=== PATIENT | female | born 1975 | race Caucasian/White ===

== ENCOUNTER 2021-06-30 10:29 | Emergency (ER) | payer MEDICAID, SELFPAY ==
--- NOTE | ~2021-06-30 | US_ITS ---
EXAMINATION: US VENOUS WITH DOPPLER UPPER EXTREMITY, LEFT CLINICAL INFORMATION: Pain COMPARISON: None TECHNIQUE: Ultrasound of the upper extremity is performed using compression sonography and color and pulse Doppler flow with assessment of augmentation of flow. There is also imaging and Doppler assessment of the jugular and subclavian veins. Spectral analysis with color-flow imaging is performed. FINDINGS: Respiratory variation, normal compression, and augmented flow are noted throughout the upper extremity including the axillary, brachial, cubital, and radial and ulnar veins. There is normal flow in the internal jugular and subclavian veins. There is no visible deep or superficial thrombophlebitis. If the patient's symptoms progress, a followup ultrasound in 5 -7 days might be of value to exclude proximal propagation from a nonvisualized distal arm vein. US/US venous duplex UE LT IMPRESSION: No DVT demonstrated in the left upper extremity.
--- NOTE | ~2021-06-30 | NM_ITS ---
EXAMINATION: NM LUNG IMAGE PERFUSION CLINICAL INFORMATION: Following disease. Chest pain. Can't get CT PE today COMPARISON: 06/30/2021 chest x-ray TECHNIQUE: Multiple oblique gamma camera images were obtained after the intravenous injection of 4 mCi of technetium 99 MAA. Ventilation study was not performed and perfusion only was performed currently. FINDINGS: On the perfusion images, there is mild heterogeneous peripheral perfusion but no fixed segmental or subsegmental defects seen. The chest x-ray from earlier today did not show any focal airspace disease either. NM/NM pul perfusion IMPRESSION: Perfusion only study performed. Ventilation images were not obtained. There is mild peripheral heterogeneity of signal but no fixed segmental or subsegmental defects seen. If the patient had a normal ventilation study this perfusion would likely correspond to a low probability VQ scan.
--- NOTE | ~2021-06-30 | CT_ITS ---
EXAMINATION: CT ANGIOGRAM NECK WITH CONTRAST CT ANGIOGRAM BRAIN WITH CONTRAST CLINICAL INFORMATION: Clotting disorder. Headache. Gait disturbance. COMPARISON: Head CT 11/01/2015.. TECHNIQUE: Test bolus sequences followed by intravenous administration 100 mL of Omnipaque 350. Helical imaging was performed in the axial plane from the thoracic inlet to the skull vertex. Delayed postcontrast imaging of the head was also performed. The data was processed at the medical technologist hematology workstation for generation of MIP sequences. Angled MIPs and volume rendered reformatted images were also generated at an offline 3D workstation. Stenoses are assessed in accordance with NASCET criteria unless otherwise indicated. This CT examination was performed using dose optimization techniques as appropriate, variously including the following: *Automated exposure control *Adjustment of mA and/or kV according to patient size (this includes techniques or standardized protocols for targeted exams where dose is matched to indication/reason for exam; i.e. extremities or head) *Use of iterative reconstruction technique DLP: 2078 mGy-cm FINDINGS: Head CT: There is no intracranial hemorrhage, large acute infarction, or mass lesion. The ventricles are normal in size and configuration without evidence of hydrocephalus. On the postcontrast images, no abnormal enhancement is seen. The dural venous sinuses demonstrate normal opacification. The visualized paranasal sinuses and mastoid air cells are clear. Neck CTA: The aortic arch and great vessel origins are patent. There is direct origin of the left vertebral artery. The bilateral common and internal carotid arteries are patent. Both vertebral arteries are patent throughout their cervical course. Head CTA: The intradural vertebral artery segments are both patent. The basilar artery is patent. There is -type origin of the left GYMNASTICS COACH OR INSTRUCTOR. Both antique auto museum maintenance worker are patent. The bilateral ICAs are patent. 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 The left A1 segment is hypoplastic. There is no proximal vessel occlusion. No aneurysm is seen. 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 Emphysema is present in the upper lungs. No consolidation is seen. The cervical soft tissues are within normal limits. Multilevel degenerative changes are seen within the cervical spine. CT/CT angio head neck IMPRESSION: No acute intracranial abnormality identified. No occlusion or significant stenosis within the major head or neck arteries. Incidentally noted emphysema.
--- NOTE | ~2021-06-30 | XR_ITS ---
EXAMINATION: XR CHEST CLINICAL INFORMATION: Chest pain COMPARISON: Previous chest x-ray August 2019 TECHNIQUE: Frontal view of the chest was obtained. FINDINGS: The cardiac and mediastinal contours are stable. There are surgical clips projecting over the left upper lung. The lungs are otherwise clear. There is no pleural effusion or pneumothorax. There may be a small right cervical rib. Bony structures are otherwise unremarkable. XR/XR chest 1V IMPRESSION: No evidence for acute disease in the chest.
[2021-06-30 10:32] VITALS: BP 167/88; PULSE 60; RESP 16; TEMP 36.7; O2SAT 96; BMI 28.3
[2021-06-30 11:10] VITALS: BP 154/70; PULSE 51; RESP 16; O2SAT 98
[2021-06-30 11:26] LABS: MANUAL DIFF FLAG NO
--- NOTE | 2021-06-30 11:30 | ED_ITS ---
HPI - General Adult General Chief complaint: General Medical Stated complaint: BLOOD CLOT DISORDER Time Seen by Provider: 06/30/21 11:30 Source: patient Mode of arrival: ambulatory Limitations: no limitations History of Present Illness HPI narrative: 45-year-old female presents for left arm pain, headache and chest pain. Patient has a history of thoracic outlet syndrome and a clotting disorder of unknown etiology. Patient has been off her medication for 6 months due to insurance issues. She was previously on Eliquis, thyroid medication and Prozac. Reports 5 days ago she hit her left arm moving a box, and bruised the posterior of her left arm. Stated today she has bruising at the top of her left forearm, and her left arm is very painful. States she woke up at 5:00 a.m. with a 10/10 headache, and chest pain. The chest pain was intermittent and is worse with movement. Chest pain occurs also without movement. The chest pain would last for about a minute and was a sharp pain radiating to her left back. Patient feels pressure in her head when she bends over, no visual changes. Patient gets chest pain when she moves or bends over. Patient states today her left hand was purple and tingly. States she would have come into the hospital sooner but she did not think she had insurance. She feels lightheaded. Onset (ago): hour(s) (8) Location: head, chest, left and upper extremity Radiation: back Severity: severe Severity scale (1-10): 10 Quality: aching and sharp Pain Consistency: constant Relieving factors: none Exacerbating factors: movement Associated symptoms: chest pain and headaches Treatments prior to arrival: none Related Data Previous Rx's Medication Instructions Recorded levothyroxine 88 mcg capsule 88 mcg PO DAILY #30 cap 06/30/21 Allergies Allergy/AdvReac Type Severity Reaction Status Date / Time Sulfa (Sulfonamide Allergy Severe ANAPHYLAXIS Unverified 07/13/20 18:57 Antibiotics) [SULFA (SULFONAMIDE ANTIBIOTICS)] cefazolin [CEFAZOLIN] Allergy Intermediate HIVES Unverified 07/13/20 18:57 atropine [ATROPINE] Allergy Unknown THROAT Unverified 07/13/20 18:57 CLOSES enoxaparin [From LOVENOX] Allergy Unknown UNKNOWN Unverified 07/13/20 18:57 Penicillins [PENICILLINS] Allergy Unknown UNKNOWN Unverified 07/13/20 18:57 acetaminophen [From VICODIN] AdvReac Unknown NAUSEA & Unverified 07/13/20 18:57 VOMITING hydrocodone [From VICODIN] AdvReac Unknown NAUSEA & Unverified 07/13/20 18:57 VOMITING Review of Systems Constitutional: Constitutional: Denies chills, Reports fatigue, Denies fever(s), Reports headache(s) and Denies malaise Eyes: Eyes: Denies blurry vision, Denies change in vision, Denies diplopia, Denies seeing flashes and Reports photophobia ENT: Denies vertigo, Denies otalgia, Reports headache(s), Denies nasal congestion, Denies nasal discharge, Reports neck pain, Denies post nasal drip and Denies sore throat Cardiovascular: Cardiovascular: Reports chest pain, Denies syncope, Denies rapid heart rate, Denies claudication, Reports lightheadedness and Denies dyspnea Comments: Chest pain with bending and movement Respiratory: Respiratory: Denies chest congestion, Denies cough and Denies dyspnea Gastrointestinal: Gastrointestinal: Denies abdominal pain, Denies melena, Denies hematochezia, Denies coffee ground emesis, Reports diarrhea, Reports na usea and Denies vomiting Genitourinary: Genitourinary: Reports no additional female genitourinary complaints Musculoskeletal: Musculoskeletal: Reports neck pain, Reports numbness, Reports radiating pain into limb and Reports tingling Comments: Left arm pain Integumentary/Breasts: Skin/Breast: Reports skin swelling (left neck) Comments: Reports left hand was purple this morning Bruising left upper extremity Neurologic: Denies Abnormal speech present, Denies vertigo, Denies syncope, Reports headache(s), Reports numbness, Denies Sensory deficit (Neuro) and Reports tingling Psychiatric: Psychiatric: Reports anxiety Endocrine: Endocrine: Reports fatigue [facility] Past Medical History [facility] Narrative: Complete hysterectomy Partial thyroidectomy Spinal fusion with hardware L4, L5, S1 Cardiomyopathy Thoracic outlet syndrome Clotting disorder of unknown etiology Removal of ribs due to pinched arteries Right-sided arterial grafts upper extremity Medical History Cervical cancer Clot Hypothyroid Social History Social History Advance Directives: No Advance Directives Information Provided: No Patient : No (N0) Physical Exam Vital Signs: Vital Signs: Last Vital Signs Temp 98.1 F 06/30/21 10:32 Pulse 45 L 06/30/21 16:05 Resp 16 06/30/21 16:05 BP 151/66 H 06/30/21 16:05 Pulse Ox 98 06/30/21 16:05 Body Mass Index 28.3 Const: General: alert, awake, acute distress mild and anxious Nutritional Appearance: average body habitus Orientation/consciousness: patient oriented x3 Limitations: no limitations HENMT: Head: Yes normal to inspection, Yes normocephalic and Yes atraumatic Ears: hearing grossly normal bilaterally General nose exam: Normal external nose present Face and sinus: Yes normal facial exam Mouth: Normal oral and palatal mucosa present Throat: Yes posterior oropharynx normal Eyes: Conjunctivae: conjunctivae normal Pupils: Equal, round and reactive pupils present EOM: EOMs intact bilaterally and Nystagmus present (fatigiable horizontal) Direct Ophthalmoscopy: normal light reflex and photophobia Neck: Other: Patient cannot move her neck without pain. Patient exquisitely tender to palpate over left neck and left shoulder Neck: No full ROM Chest: Other: Scars over anterior chest Resp: Effort & Inspection: normal respiratory effort and able to speak in complete sentences Auscultation: clear to auscultation bilaterally, no crackles, no rales, no rhonchi and no wheezes Cardio: Rate: bradycardic Rhythm: regular rhythm Heart sounds: S1 normal heart sound present and S2 normal heart sound present GI: Inspection: Yes normal to inspection Palpation (GI): Soft to palpation and nontender Percussion: Yes normal to percussion Skin: Other: Ecchymosis distal left arm General skin exam: ecchymosis Neuro: Other: When patient got up to walk she had a staggering gait and then collapsed and began to vomit General: patient oriented x3 and No gait normal Cranial nerves: Yes CN's II-XII intact bilaterally, Yes Facial sensation intact/muscles of mastication intact, Yes Equal, round and reactive pupils present, Yes Normal accommodation reflex present, Yes Bilaterally intact EOM present, Yes Midline tongue present, No Ability to bilaterally rotate head present (painful), Yes Ability to bilaterally elevate shoulders present and Yes Nystagmus present (fatigiable horizontal) Cognition (Neuro): normal cognition Speech: No Abnormal speech present Gait exam (Neuro): Staggering gait present Motor exam (neuro): 5/5 motor strength present throughout and no tremor noted Sensory Exam: No Sensory deficit (Neuro) Deep tendon reflexes (DTR's): Right patellar reflex intensity grade: 1+ and Left patellar reflex intensity grade: 1+ Coordination: [id number] test normal, [id number] test normal, No tandem gait normal and Normal rapid alternating movements of the distal upper extremity present (Neuro) Pupils: Normal pupillary react ivity/response: bilateral Extrem: General: Yes capillary refill normal Left upper extremity: shoulder/upper arm (Tender to palpation) Details: tenderness (Are left upper extremity) and normal ROM and elbow/forearm (Ecchymosis, tender to palpation) Psych: Appearance: grossly normal Mental Status: mental status grossly normal Speech and movement: Normal speech and movement present Affect: Anxious affect present Course Course Course Narrative: 45-year-old female presents with injury to left upper extremity that occurred 5 days ago, and chest pain and severe headache and left- sided neck pain that started at 5:00 a.m. this morning. Patient has a complex medical history of an unknown clotting disorder, thoracic outlet syndrome with artery grafts and ribs removed, she has seen Dr. Talamantes at [facility], has not seen Dr. Talamantes for 2 years. Patient has been off all of her medication because she did not think she has insurance. She is supposed to be on Eliquis, thyroid medication, Prozac On exam, patient is exquisitely tender to left neck and left shoulder, cannot move her head due to pain. Patient has ecchymosis on her left forearm both anterior and posterior. When patient was stood up to walk during neurological exam, she had a staggering wide-based gait, and then collapsed and began to vomit. States her headache became much worse. Will ultrasound left upper extremity, labs and EKG, CTA head and neck, get TSH, requested V/Q scan due to CT a head and neck having too big a dye load. Reevaluation(s) Reevaluation #1: Patient is an INR 1.0 and a D-dimer of 229. Due to patient's extensive history will continue to rule out clots in chest and head and neck. Patient is found to be profoundly hypothyroid, with a TSH of 57.84, and a free T4 of 0.59. This corresponds with her sinus bradycardia at 47 beats per minute. EKG shows no acute ischemia, troponin is negative, proBNP is only 12. UE ultrasound for DVT is negative. Awaiting V/Q scan and CTA head and neck V/Q scan: Perfusion only study performed. Ventilation images were not obtained. There is mild peripheral heterogeneity of signal but no fixed segmental or subsegmental defects seen. If the patient had a normal ventilation study this perfusion would likely correspond to a low probability VQ scan. CTA head and neck shows: No acute intracranial abnormality identified. No occlusion or significant stenosis within the major head or neck arteries. Incidentally noted emphysema Counseled patient that I would like to admit her for her profound hypothyroidism. Patient refuses, she is upset because her bed has been next to loud and disruptive patients, she wants to go home against medical advice Medical Decision Making Lab Data Result diagrams: 06/30/21 11:21 06/30/21 11:21 Labs: Lab Results 06/30/21 06/30/21 06/30/21 Range/Units 11:21 11:21 11:21 WBC 6.6 (4.8-10.8) X10*3/uL RBC 4.66 (4.20-5.50) X10*6/uL Hgb 14.0 (12.0-16.0) g/dl Hct 41.9 (37-47) % MCV 89.9 (80-98) fL MCH 30.0 (27.0-33.0) pg MCHC 33.4 (31.0-35.0) g/dl RDW 14.0 (11.0-16.0) % Plt Count 306 (160-400) X10*3/uL MPV 9.8 (9.4-12.3) fL Immature Gran % (Auto) 0.3 (0.0-0.4) % Neut % (Auto) 46.0 (45-73) % Lymph % (Auto) 47.0 H (20-40) % [place] % (Auto) 4.6 (2-11) % Eos % (Auto) 1.8 (0-4) % Baso % (Auto) 0.3 (0-2) % Lymph # (Auto) 3.1 (1.2-4.9) X10*3/uL [place] # (Auto) 0.3 (0.1-1.2) X10*3/uL Eos # (Auto) 0.1 (0.0-0.4) X10*3/uL Baso # (Auto) 0.0 (0.0-0.2) X10*3/uL Abs Immat Gran (auto) 0.02 (0.00-0.03) X10*3/uL Absolute Neuts (auto) 3.0 (2.0-8.3) X10*3/uL Absolute Nucleated RBC 0.000 (0.0-0.012) X10*3/uL Nucleated RBC % (auto) 0.0 (0.0-0.2) /100WBC PT 11.8 (9.9-13.0) SEC INR 1.0 (0.9-1.1) APTT 39.9 H (24.1-38.0) SEC D-Dimer 229 NG/ML Sodium 142 (135-145) mmol/L Potassium 4.4 (3.3-5.1) mmol/L Chloride 110 H (96-108) mmol/L Carbon Dioxide 23 (22-29) mmol/L Anion Gap 13 (12-20) BUN 5 L (9-16) mg/dL Creatinine 0.87 (0.5-1.4) mg/dL Estim Creat Clear Calc 82.0 Estimated GFR > 60 Random Glucose 90 (60-115) mg/dL Calcium 9.4 (8.4-10.2) mg/dL Troponin I High Sens (<3.5-17.0) ng/L B-Natriuretic Peptide (<100) pg/mL TSH 57.84 H (0.32-4.0) uIU/mL Free T4 0.59 L (0.71-1.85) ng/dL COVID-19 (DANILO) (Negative) COVID-19 Clin Com 06/30/21 06/30/21 Range/Units 11:21 12:45 WBC (4.8-10.8) X10*3/uL RBC (4.20-5.50) X10*6/uL Hgb (12.0-16.0) g/dl Hct (37-47) % MCV (80-98) fL MCH (27.0-33.0) pg MCHC (31.0-35.0) g/dl RDW (11.0-16.0) % Plt Count (160-400) X10*3/uL MPV (9.4-12.3) fL Immature Gran % (Auto) (0.0-0.4) % Neut % (Auto) (45-73) % Lymph % (Auto) (20-40) % [place] % (Auto) (2-11) % Eos % (Auto) (0-4) % Baso % (Auto) (0-2) % Lymph # (Auto) (1.2-4.9) X10*3/uL [place] # (Auto) (0.1-1.2) X10*3/uL Eos # (Auto) (0.0-0.4) X10*3/uL Baso # (Auto) (0.0-0.2) X10*3/uL Abs Immat Gran (auto) (0.00-0.03) X10*3/uL Absolute Neuts (auto) (2.0-8.3) X10*3/uL Absolute Nucleated RBC (0.0-0.012) X10*3/uL Nucleated RBC % (auto) (0.0-0.2) /100WBC PT (9.9-13.0) SEC INR (0.9-1.1) APTT (24.1-38.0) SEC D-Dimer NG/ML Sodium (135-145) mmol/L Potassium (3.3-5.1) mmol/L Chloride (96-108) mmol/L Carbon Dioxide (22-29) mmol/L Anion Gap (12-20) BUN (9-16) mg/dL Creatinine (0.5-1.4) mg/dL Estim Creat Clear Calc Estimated GFR Random Glucose (60-115) mg/dL Calcium (8.4-10.2) mg/dL Troponin I High Sens < 3.5 (<3.5-17.0) ng/L B-Natriuretic Peptide 12 (<100) pg/mL TSH (0.32-4.0) uIU/mL Free T4 (0.71-1.85) ng/dL COVID-19 (DANILO) Negative (Negative) COVID-19 Clin Com See Note ECG Data Interpretation: Sinus bradycardia at a rate of 46, sinus arrhythmia, RI interval 158, QRS 104, QTC 404. No ST elevations or depressions, no T-wave flattening Discharge Plan Discharge Clinical Impression: Hypothyroidism Qualifiers: Hypothyroidism type: unspecified Qualified Code(s): E03.9 - Hypothyroidism, unspecified Patient Disposition: Left Against Medical Advice Instructions: Hypothyroidism (ED) Additional Instructions: Call your primary care provider on Friday. Please fill the prescription for levothyroxine and take it starting today. If you have worsening headache, vomiting, or any other new or concerning symptoms please return to the emergency room. Prescriptions: New levothyroxine 88 mcg capsule 88 mcg PO DAILY Qty: 30 RF: 0
[2021-06-30 11:38] LABS: Partial Thromboplastin Time 39.9 SEC (24.1-38.0)
[2021-06-30 11:40] LABS: Basophils Percent Auto 0.3 % (0-2); Eosinophils Absolute Auto 0.1 X10*3/uL (0.0-0.4); Eosinophils Percent Auto 1.8 % (0-4); Hematocrit 41.9 % (37-47); Imm Gran Abs Auto 0.02 X10*3/uL (0.00-0.03); Imm Gran Pct Auto 0.3 % (0.0-0.4); Lymphocytes Absolute Auto 3.1 X10*3/uL (1.2-4.9); Mean Corpuscular HGB Conc 33.4 g/dl (31.0-35.0); Mean Corpuscular Volume 89.9 fL (80-98); Mean Platelet Volume 9.8 fL (9.4-12.3); Monocytes Absolute Auto 0.3 X10*3/uL (0.1-1.2); Monocytes Percent Auto 4.6 % (2-11); Platelet Count 306 X10*3/uL (160-400); Red Blood Count 4.66 X10*6/uL (4.20-5.50); White Blood Count 6.6 X10*3/uL (4.8-10.8)
[2021-06-30 11:46] LABS: Anion Gap 13 (12-20); Blood Urea Nitrogen 5 mg/dL (9-16); Calcium 9.4 mg/dL (8.4-10.2); Carbon Dioxide 23 mmol/L (22-29); Chloride 110 mmol/L (96-108); Estimated Glomerular Filt Rate > 60; Glucose Random 90 mg/dL (60-115); Potassium 4.4 mmol/L (3.3-5.1); Sodium 142 mmol/L (135-145)
--- NOTE | 2021-06-30 12:30 | ECG_ITS ---
Test Reason : BLOOD CLOT Blood Pressure : / mmHG Vent. Rate : 046 BPM Atrial Rate : 046 BPM P-R Int : 158 ms QRS Dur : 104 ms QT Int : 462 ms P-R-T Axes : 039 -06 040 degrees QTc Int : 404 ms Sinus bradycardia with sinus arrhythmia Nonspecific T wave abnormality Abnormal ECG When compared with ECG of 05-SEP-2019 10:18, Nonspecific T wave abnormality now evident in Anterior leads Referred By: Rani Pereira Electronically Signed By:RAYNE KRISHNA
[2021-06-30] MEDS: 0.9 % Sodium Chloride 1,000 ML 999 ML IV (12:40)
[2021-06-30] MEDS: HYDROmorphone HCl 1 MG/ML SYRINGE IVPUSH (12:40)
[2021-06-30] MEDS: ondansetron HCL 4 MG/2 ML VIAL IVPUSH (12:40)
[2021-06-30 12:46] LABS: Prothrombin Time 11.8 SEC (9.9-13.0)
[2021-06-30 12:49] LABS: D Dimer 229 NG/ML
[2021-06-30 12:59] LABS: B Type Natriuretic Peptide 12 pg/mL (<100); Troponin-I High Sensitivity < 3.5 ng/L (<3.5-17.0)
[2021-06-30 13:06] LABS: COVID-19 Test Negative (Negative); IDNOW Serial# 55D5AD1C
[2021-06-30 13:17] VITALS: BP 148/51; PULSE 40; RESP 16; O2SAT 98
[2021-06-30 13:28] LABS: Free T4 (Free Thyroxine) 0.59 ng/dL (0.71-1.85); Thyroid Stimulating Hormone 57.84 uIU/mL (0.32-4.0)
[2021-06-30] MEDS: HYDROmorphone HCl 0.5 MG/0.5 ML SYRINGE IVPUSH ×2 (13:35→16:14)
--- NOTE | 2021-06-30 15:13 | PC.NURSE ---
Patient to Nuclear Medicine. Patient breathing even and unlabored in NAD.
[2021-06-30 16:05] VITALS: BP 151/66; PULSE 45; RESP 16; O2SAT 98
[2021-06-30] MEDS: iohexoL 350 MG/ML 100 ML INFUS..BTL IV (17:02)
== END 2021-06-30 18:19 | disposition left against medical advice (07) ==
PROVIDERS: Physician Assistant; Emergency Provider Student in an Organized Health Care Education/Training Program; PCP Internal Medicine
DX: E03.9 Hypothyroidism, unspecified (principal); R00.1 Bradycardia, unspecified; S50.12XA Contusion of left forearm, initial encounter; W22.8XXA Striking against or struck by other objects, initial encounter; M79.602 Pain in left arm; R51.9 Headache, unspecified; M54.2 Cervicalgia; R07.9 Chest pain, unspecified; D68.9 Coagulation defect, unspecified; G54.0 Brachial plexus disorders; Y93.9 Activity, unspecified; Y92.9 Unspecified place or not applicable; Y99.9 Unspecified external cause status; Z91.14 Patient's other noncompliance with medication regimen; Z85.41 Personal history of malignant neoplasm of cervix uteri; Z20.822 Contact with and (suspected) exposure to COVID-19
CPT/HCPCS: 36415; 70496; 70498; 71045; 78580; 80048; 83880; 84439; 84443; 84484; 85025; 85379; 85610; 85730; 87635; 93005; 93971; 96361; 96374; 96375; 96376; 99284; 99285; A9540; J1170; J2405; Q9967

== ENCOUNTER 2021-09-07 11:48 | Emergency (ER) | payer MEDICAID, SELFPAY ==
--- NOTE | ~2021-09-07 | CT_ITS ---
EXAMINATION: CT HEAD WITHOUT CONTRAST CLINICAL INFORMATION: Headache, seizure COMPARISON: CTA head 06/30/2021, CT had noncontrast 11/01/2015. TECHNIQUE: Contiguous axial imaging was performed from the skull base to vertex without intravenous administration of contrast. Additional 2-D coronal and sagittal reformatted images are generated on the CT workstation and uploaded to PACS. This CT examination was performed using dose optimization techniques as appropriate, variously including the following: *Automated exposure control *Adjustment of mA and/or kV according to patient size (this includes techniques or standardized protocols for targeted exams where dose is matched to indication/reason for exam; i.e. extremities or head) *Use of iterative reconstruction technique DLP: 594 mGy-cm FINDINGS: There is no intracranial hemorrhage, hematoma, or extra-axial fluid collection. The ventricles are normal in size. There is no hydrocephalus, edema, or mass effect. The alcaraz-white matter differentiation appears symmetric. There is no visible acute territorial infarct or mass lesion. The calvarium appears intact. There is no pneumocephalus or orbital emphysema. The visualized sinuses and middle ears and mastoid air cells show no significant mucosal thickening. There are no air-fluid levels. CT/CT head/brain wo con IMPRESSION: No acute intracranial abnormality.
[2021-09-07 11:50] VITALS: BP 128/75; PULSE 68; RESP 18; TEMP 36.7; O2SAT 95; BMI 25.0
[2021-09-07 14:12] VITALS: BP 127/81; PULSE 57; RESP 17; O2SAT 99
--- NOTE | 2021-09-07 14:15 | ED_ITS ---
HPI - Headache General Chief Complaint: Headache Stated Complaint: headache Time Seen by Provider: 09/07/21 14:13 History of Present Illness HPI Narrative: Patient is a 45-year-old female presents today with having headache. The headaches been ongoing for about a week. It is diffuse it is dull it is worse with light. Worse with noise. Similar to previous bouts of migraine. Patient also had a previous history of seizures. She gets a seizure every few months. Patient was told yesterday she had an episode where she was shaking all arms and legs. Was very lethargic afterwards. She did not recalled arms and legs shaking issues told by bystanders that it was occurring. Patient is not on any seizure medication. Patient denies any chest pain. Denies any focal weakness. Denies any fever. Denies any coughing congestion upper respiratory symptoms. Denies any diaphoresis. No chest pain. No bloody stool. No acute changes in medication. Patient had a hysterectomy. History of clotting disorder patient is on Eliquis. Related Data Previous Rx's Medication Instructions Recorded levothyroxine 88 mcg capsule 88 mcg PO DAILY #30 cap 06/30/21 ondansetron HCl 4 mg tablet 4 mg PO Q8H PRN #10 tab 09/07/21 (Zofran) Allergies Allergy/AdvReac Type Severity Reaction Status Date / Time Sulfa (Sulfonamide Allergy Severe ANAPHYLAXIS Verified 09/07/21 11:50 Antibiotics) [SULFA (SULFONAMIDE ANTIBIOTICS)] cefazolin [CEFAZOLIN] Allergy Intermediate HIVES Verified 09/07/21 11:50 atropine [ATROPINE] Allergy Unknown THROAT Verified 09/07/21 11:50 CLOSES enoxaparin [From LOVENOX] Allergy Unknown UNKNOWN Verified 09/07/21 11:50 Penicillins [PENICILLINS] Allergy Unknown UNKNOWN Verified 09/07/21 11:50 acetaminophen [From VICODIN] AdvReac Unknown NAUSEA & Verified 09/07/21 11:50 VOMITING hydrocodone [From VICODIN] AdvReac Unknown NAUSEA & Verified 09/07/21 11:50 VOMITING Review of Systems Review of Systems: Positive headache No change in vision No focal weakness Yes all other systems are reviewed and are negative PMFSH Past Medical History Attestation statement: The following information was validated with the patient. Medical History Cervical cancer Clot Hypothyroid Surgical History H/O spinal fusion Social History Social History Alcohol intake: never Patient Tobacco Use Status: Current everyday Tobacco user Use of substances other than those prescribed or required for medical reasons: No Advance Directives: No Patient : No Physical Exam Vital Signs: Vital Signs: Last Vital Signs Temp 98.1 F 09/07/21 11:50 Pulse 50 09/07/21 15:29 Resp 14 09/07/21 15:29 BP 125/66 09/07/21 15:29 Pulse Ox 98 09/07/21 15:29 Body Mass Index 25.0 Appearance: Alert. Oriented X3. No acute distress. Eyes: Pupils equal, round and reactive to light. ENT: Pharynx normal. Neck: Normal inspection. Neck supple. No lymph nodes noted. No crepitus CVS: Normal heart rate and rhythm. Pulses normal. Normal S1 and S2 Respiratory: No respiratory distress. Breath sounds normal. No Wheezing. No rales Abdomen: Soft and nontender. No rigidity. No distention. good BS x4 Skin: Skin warm and dry. Normal skin color. Normal skin turgor. Extremities: No lower extremity edema. Neurovascular intact to all extremities. No Lacerations. No Rash Neuro: Oriented X 3. No motor deficit. No sensory deficit. Moving all extermities. No slurred speech MDM - Headache MDM Narrative Medical decision making narrative: Given patient is on Eliquis although neurologically intact history consistent with a migraine a CT scan head was done was grossly negative for any acute evidence of bleeding. Electrolytes unremarkable given migraine treatment with good relief of symptoms. Will give patient Zofran for nausea. Continue Tylenol at home. Seizure precaution. Close follow-up on an outpatient basis with Neurology. Patient has not had a seizure for years. I felt at this time not to place patient on an anti convulsant. In stable condition Differential Diagnosis Differential diagnosis: Likely migraine Medical Records Attestation: I reviewed the patient's medical records. Lab Data Attestation: I reviewed the patient's lab results. Result diagrams: 09/07/21 14:28 09/07/21 14:28 Labs: Lab Results 09/07/21 09/07/2121 Range/Units 14:28 14:28 14:28 WBC 7.4 (4.8-10.8) X10*3/uL RBC 4.53 (4.20-5.50) X10*6/uL Hgb 13.4 (12.0-16.0) g/dl Hct 40.7 (37.0-47.0) % MCV 89.8 (80.0-98.0) fL MCH 29.6 (27.0-33.0) pg MCHC 32.9 (31.0-35.0) g/dl RDW 13.1 (11.0-16.0) % Plt Count 263 (160-400) X10*3/uL MPV 9.3 L (9.4-12.3) fL Immature Gran % (Auto) 0.3 (0.0-0.4) % Neut % (Auto) 47.4 (45-73) % Lymph % (Auto) 44.7 H (20-40) % [place] % (Auto) 5.3 (2-11) % Eos % (Auto) 2.0 (0-4) % Baso % (Auto) 0.3 (0-2) % Lymph # (Auto) 3.3 (1.2-4.9) X10*3/uL [place] # (Auto) 0.4 (0.1-1.2) X10*3/uL Eos # (Auto) 0.2 (0.0-0.4) X10*3/uL Baso # (Auto) 0.0 (0.0-0.2) X10*3/uL Abs Immat Gran (auto) 0.02 (0.00-0.03) X10*3/uL Absolute Neuts (auto) 3.5 (2.0-8.3) x10*3/uL Absolute Nucleated RBC 0.000 (0.0-0.012) X10*3/uL Nucleated RBC % (auto) 0.0 (0.0-0.2) /100WBC Sodium 138 (135-145) mmol/L Potassium 4.0 (3.3-5.1) mmol/L Chloride 104 (96-108) mmol/L Carbon Dioxide 28 (22-29) mmol/L Anion Gap 10 L (12-20) BUN 9 D (9-16) mg/dL Creatinine 0.85 (0.5-1.4) mg/dL Estim Creat Clear Calc 73.6 Estimated GFR > 60 Random Glucose 87 (60-115) mg/dL Calcium 9.2 (8.4-10.2) mg/dL Total Bilirubin 0.4 (0.0-1.0) mg/dL Direct Bilirubin < 0.2 (0.0-0.5) mg/dL AST 27 (5-31) U/L ALT 19 (0-31) U/L Alkaline Phosphatase 61 (39-117) U/L Troponin I High Sens < 3.5 (<3.5-17.0) ng/L Total Protein 6.4 L (6.5-8.0) g/dL Albumin 4.3 (3.5-5.0) g/dL Urine Color Urine Appearance Urine pH (5.0-8.0) Ur Specific [place] (1.005-1.025) Urine Protein (NEG-TRACE) MG/DL Urine Glucose (UA) (NEG) MG/DL Urine Ketones (NEG) MG/DL Urine Blood (NEG) Urine Nitrite (NEG) Ur Leukocyte Esterase (NEG) Urine RBC (0) /HPF Urine WBC (0-4) /HPF Ur Squamous Epith Cells /LPF Urine Bacteria /LPF 09/07/21 Range/Units 14:28 WBC (4.8-10.8) X10*3/uL RBC (4.20-5.50) X10*6/uL Hgb (12.0-16.0) g/dl Hct (37.0-47.0) % MCV (80.0-98.0) fL MCH (27.0-33.0) pg MCHC (31.0-35.0) g/dl RDW (11.0-16.0) % Plt Count (160-400) X10*3/uL MPV (9.4-12.3) fL Immature Gran % (Auto) (0.0-0.4) % Neut % (Auto) (45-73) % Lymph % (Auto) (20-40) % [place] % (Auto) (2-11) % Eos % (Auto) (0-4) % Baso % (Auto) (0-2) % Lymph # (Auto) (1.2-4.9) X10*3/uL [place] # (Auto) (0.1-1.2) X10*3/uL Eos # (Auto) (0.0-0.4) X10*3/uL Baso # (Auto) (0.0-0.2) X10*3/uL Abs Immat Gran (auto) (0.00-0.03) X10*3/uL Absolute Neuts (auto) (2.0-8.3) x10*3/uL Absolute Nucleated RBC (0.0-0.012) X10*3/uL Nucleated RBC % (auto) (0.0-0.2) /100WBC Sodium (135-145) mmol/L Potassium (3.3-5.1) mmol/L Chloride (96-108) mmol/L Carbon Dioxide (22-29) mmol/L Anion Gap (12-20) BUN (9-16) mg/dL Creatinine (0.5-1.4) mg/dL Estim Creat Clear Calc Estimated GFR Random Glucose (60-115) mg/dL Calcium (8.4-10.2) mg/dL Total Bilirubin (0.0-1.0) mg/dL Direct Bilirubin (0.0-0.5) mg/dL AST (5-31) U/L ALT (0-31) U/L Alkaline Phosphatase (39-117) U/L Troponin I High Sens (<3.5-17.0) ng/L Total Protein (6.5-8.0) g/dL Albumin (3.5-5.0) g/dL Urine Color YELLOW Urine Appearance CLEAR Urine pH 6.0 (5.0-8.0) Ur Specific [place] 1.010 (1.005-1.025) Urine Protein NEG (NEG-TRACE) MG/DL Urine Glucose (UA) NEG (NEG) MG/DL Urine Ketones NEG (NEG) MG/DL Urine Blood NEG (NEG) Urine Nitrite NEG (NEG) Ur Leukocyte Esterase 1+ H (NEG) Urine RBC 0 (0) /HPF Urine WBC 1-4 (0-4) /HPF Ur Squamous Epith Cells 1+ /LPF Urine Bacteria NONE /LPF Discharge Plan Discharge Clinical Impression: Migraine, Seizure Patient Disposition: Home, Self-Care Instructions: Migraine Headache (ED), Epilepsy (ED) Prescriptions: New ondansetron HCl [Zofran] 4 mg tablet 4 mg PO Q8H PRN (Reason: nausea and vomiting) Qty: 10 RF: 0 No Action levothyroxine 88 mcg capsule 88 mcg PO DAILY Qty: 30 RF: 0 Referrals: Griffin Elliott DO [Primary Care Provider] - 2 days (No driving no activities that will put her in danger if he have a seizure at that time. Seizure precaution advised. Please closely follow-up with your doctor.) Ben Ly MD [Physician] - 2 days
[2021-09-07] MEDS: diphenhydrAMINE HCL 50 MG/ML VIAL 25 MG IVPUSH (14:37)
[2021-09-07 14:38] LABS: MANUAL DIFF FLAG NO
[2021-09-07] MEDS: Prochlorperazine Edisylate 10 MG/2 ML VIAL IVPUSH (14:39)
[2021-09-07 14:40] LABS: Appearance Urine CLEAR; Color Urine YELLOW; Glucose Urine UA NEG (NEG); Leukocyte Esterase Urine 1+ (NEG); Nitrite Urine NEG (NEG); UACC Culture Trigger YES; Urine Blood NEG (NEG); Urine Ketones NEG (NEG); Urine Protein NEG (NEG-TRACE)
[2021-09-07] MEDS: Ketorolac Tromethamine 30 MG/ML VIAL IVPUSH (14:40)
[2021-09-07 14:43] LABS: Basophils Percent Auto 0.3 % (0-2); Eosinophils Absolute Auto 0.2 X10*3/uL (0.0-0.4); Hematocrit 40.7 % (37.0-47.0); Hemoglobin 13.4 g/dl (12.0-16.0); Imm Gran Abs Auto 0.02 X10*3/uL (0.00-0.03); Imm Gran Pct Auto 0.3 % (0.0-0.4); Lymphocytes Absolute Auto 3.3 X10*3/uL (1.2-4.9); Lymphocytes Percent Auto 44.7 % (20-40); Mean Corpuscular HGB Conc 32.9 g/dl (31.0-35.0); Mean Corpuscular Hemoglobin 29.6 pg (27.0-33.0); Mean Corpuscular Volume 89.8 fL (80.0-98.0); Mean Platelet Volume 9.3 fL (9.4-12.3); Monocytes Absolute Auto 0.4 X10*3/uL (0.1-1.2); Monocytes Percent Auto 5.3 % (2-11); Neutrophils Absolute Auto 3.5 x10*3/uL (2.0-8.3); Neutrophils Percent Auto 47.4 % (45-73); Platelet Count 263 X10*3/uL (160-400); Red Blood Count 4.53 X10*6/uL (4.20-5.50); Red Cell Distribution Width 13.1 % (11.0-16.0); White Blood Count 7.4 X10*3/uL (4.8-10.8)
[2021-09-07] MEDS: dexAMETHasone sod phosphate 10 MG/ML VIAL IVPUSH (14:43)
[2021-09-07 14:52] LABS: RBC Urine 0 /HPF (0); Squamous Epithelial Cell Urine 1+ /LPF
[2021-09-07 14:56] LABS: Alanine Aminotransferase 19 U/L (0-31); Albumin Level 4.3 g/dL (3.5-5.0); Alkaline Phosphatase 61 U/L (39-117); Anion Gap 10 (12-20); Aspartate Amino Transferase 27 U/L (5-31); Bilirubin Direct < 0.2 mg/dL (0.0-0.5); Bilirubin Total 0.4 mg/dL (0.0-1.0); Blood Urea Nitrogen 9 mg/dL (9-16); Calcium 9.2 mg/dL (8.4-10.2); Carbon Dioxide 28 mmol/L (22-29); Chloride 104 mmol/L (96-108); Creatinine Clr Calc Pharmacy 73.6; Estimated Glomerular Filt Rate > 60; Glucose Random 87 mg/dL (60-115); Sodium 138 mmol/L (135-145); Total Protein 6.4 g/dL (6.5-8.0)
[2021-09-07 15:00] LABS: Troponin-I High Sensitivity < 3.5 ng/L (<3.5-17.0)
[2021-09-07 15:29] VITALS: BP 125/66; PULSE 50; RESP 14; O2SAT 98
== END 2021-09-07 15:56 | disposition home or self-care (01) ==
PROVIDERS: Emergency Provider Emergency Medicine Emergency Medical Services; PCP Internal Medicine
DX: G43.009 Migraine without aura, not intractable, without status migrainosus (principal); R56.9 Unspecified convulsions; Z86.718 Personal history of other venous thrombosis and embolism; Z79.01 Long term (current) use of anticoagulants
CPT/HCPCS: 36415; 70450; 80048; 80076; 81001; 84484; 85025; 87086; 96374; 96375; 99284; 99285; J1100; J1200; J1885

== ENCOUNTER 2021-09-28 12:31 | Emergency (ER) | payer MEDICAID, SELFPAY ==
[2021-09-28 12:52] VITALS: BMI 24.1
[2021-09-28 12:54] VITALS: BP 132/77; PULSE 50; RESP 18; TEMP 37.1; O2SAT 98
--- NOTE | 2021-09-28 13:03 | ED.HA ---
HPI - Headache General Chief Complaint: Headache Stated Complaint: nausea Time Seen by Provider: 09/28/21 13:03 Source: patient Mode of arrival: ambulatory Limitations: no limitations History of Present Illness HPI Narrative: Patient with 1 month of migraine with blurry vision and photophobia and exposed to COVID. Frontal headache radiating to the neck MD elicited complaint: migraine Pertinent past history: migraines Onset (ago): week(s) Onset description: gradually Location: frontal Severity: moderate Quality & Timing: aching Exacerbating factors: movement of head/neck, light and noise Associated symptoms: nausea, vomiting, neck stiffness and photophobia Related Data Previous Rx's Medication Instructions Recorded levothyroxine 88 mcg capsule 88 mcg PO DAILY #30 cap 06/30/21 ondansetron HCl 4 mg tablet 4 mg PO Q8H PRN #10 tab 09/07/21 (Zofran) naproxen 500 mg tablet (Naprosyn) 500 mg PO BID #20 tab 09/28/21 Allergies Allergy/AdvReac Type Severity Reaction Status Date / Time Sulfa (Sulfonamide Allergy Severe ANAPHYLAXIS Verified 09/07/21 11:50 Antibiotics) [SULFA (SULFONAMIDE ANTIBIOTICS)] cefazolin [CEFAZOLIN] Allergy Intermediate HIVES Verified 09/07/21 11:50 atropine [ATROPINE] Allergy Unknown THROAT Verified 09/07/21 11:50 CLOSES enoxaparin [From LOVENOX] Allergy Unknown UNKNOWN Verified 09/07/21 11:50 Penicillins [PENICILLINS] Allergy Unknown UNKNOWN Verified 09/07/21 11:50 acetaminophen [From VICODIN] AdvReac Unknown NAUSEA & Verified 09/07/21 11:50 VOMITING hydrocodone [From VICODIN] AdvReac Unknown NAUSEA & Verified 09/07/21 11:50 VOMITING Review of Systems Constitutional: Constitutional: Reports no additional constitutional complaints Eyes: Eyes: Reports no additional eye complaints ENT: Denies dizziness Cardiovascular: Cardiovascular: Reports no additional cardiovascular complaints Respiratory: Respiratory: Reports as per HPI Gastrointestinal: Gastrointestinal: Reports no additional gastrointestinal complaints Genitourinary: Genitourinary: Reports no additional female genitourinary complaints Musculoskeletal: Musculoskeletal: Reports no additional musculoskeletal complaints Integumentary/Breasts: Skin/Breast: Denies rash Neurologic: Reports system reviewed and no additional complaints, except as documented, Denies dizziness and Denies Sensory deficit (Neuro) Psychiatric: Psychiatric: Denies anxiety PMFSH Past Medical History Medical History Cervical cancer Clot Hypothyroid Surgical History H/O spinal fusion Social History Social History Alcohol intake: never Patient Tobacco Use Status: Current everyday Tobacco user Advance Directives: No Advance Directives Information Provided: No Physical Exam Vital Signs: Vital Signs: Last Vital Signs Temp 98.1 F 09/28/21 15:15 Pulse 52 09/28/21 15:15 Resp 20 09/28/21 15:15 BP 113/57 L 09/28/21 15:15 Pulse Ox 98 09/28/21 15:15 BMI result Body Mass Index 24.1 Const: General: healthy appearing Nutritional Appearance: average body habitus Orientation/consciousness: oriented to person and patient oriented x3 Limitations: no limitations HENMT: Head: Yes normal to inspection Ears: external ears normal General nose exam: Normal external nose present Mouth: Normal oral and palatal mucosa present and oropharynx normal Throat: Yes posterior oropharynx normal Eyes: General: appearance normal, both eyes and all related structures Neck: Other: supple Neck: Yes normal visual inspection Chest: Chest palpation & inspection: normal inspection of the chest Resp: Auscultation: clear to auscultation bilaterally Cardio: Jugular venous distension: no JVD Rate: regular rate Rhythm: regular rhythm Heart sounds: S1 normal heart sound present and S2 normal heart sound present GI: Inspection: Yes normal to inspection Palpation (GI): Soft to palpation, nontender and No hepatosplenomegaly present Auscultation: normal bowel sounds : General: Yes no CVA tenderness Back/Spine/Pelvis: Back: no CVA tenderness Skin: General skin exam: no rashes or lesions noted Neuro: General: oriented to person and patient oriented x3 Cranial nerves: Yes CN's II-XII intact bilaterally Motor exam (neuro): 5/5 motor strength present throughout Sensory Exam: No Sensory deficit (Neuro) Extrem: General: Yes normal to inspection Psych: Appearance: grossly normal Course Reevaluation(s) Reevaluation #1: patient much improved will dc home Time: 16:54 MDM - Headache Lab Data Labs: Lab Results 09/28/21 Range/Units 13:29 COVID-19 (DANILO) Negative (Negative) COVID-19 Clin Com See Note Discharge Plan Discharge Clinical Impression: Migraine Qualifiers: Migraine type: with aura Status migrainosus presence: with status migrainosus Intractability: not intractable Qualified Code(s): G43.101 - Migraine with aura, not intractable, with status migrainosus Patient Disposition: Home, Self-Care Instructions: Migraine Headache (ED) Prescriptions: New naproxen [Naprosyn] 500 mg tablet 500 mg PO BID Qty: 20 RF: 0 No Action levothyroxine 88 mcg capsule 88 mcg PO DAILY Qty: 30 RF: 0 ondansetron HCl [Zofran] 4 mg tablet 4 mg PO Q8H PRN (Reason: nausea and vomiting) Qty: 10 RF: 0 Referrals: Griffin Elliott DO [Primary Care Provider] - 1 week
[2021-09-28 13:06] VITALS: BP 110/74; PULSE 64; O2SAT 98
[2021-09-28] MEDS: 0.9 % Sodium Chloride 1,000 ML 500 ML IVCONT (13:37)
[2021-09-28] MEDS: Ketorolac Tromethamine 30 MG/ML VIAL IVPUSH (13:37)
[2021-09-28 13:49] LABS: COVID-19 Test Negative (Negative); IDNOW Serial# 9DD0AD1C
[2021-09-28 15:15] VITALS: BP 113/57; PULSE 52; RESP 20; TEMP 36.7; O2SAT 98
[2021-09-28] MEDS: diphenhydrAMINE HCL 50 MG/ML VIAL 25 MG IVPUSH (15:44)
[2021-09-28] MEDS: Haloperidol Lactate 5 MG/ML VIAL IVPUSH (15:44)
== END 2021-09-28 17:26 | disposition home or self-care (01) ==
PROVIDERS: Emergency Provider Emergency Medicine; PCP Internal Medicine
DX: G43.101 Migraine with aura, not intractable, with status migrainosus (principal); Z20.822 Contact with and (suspected) exposure to COVID-19
CPT/HCPCS: 36415; 87635; 96361; 96374; 96375; 99285; J1200; J1885; J2550

== ENCOUNTER 2021-11-13 11:36 | Emergency (ER) | payer MEDICAID, SELFPAY ==
--- NOTE | ~2021-11-13 | XR_ITS ---
EXAMINATION: RIGHT FOOT AND RIGHT ANKLE. CLINICAL INFORMATION: Fall. COMPARISON: None TECHNIQUE: 3 views right foot and 2 views right ankle. FINDINGS: Right foot: There is no visible fracture, dislocation or subluxation. The joint space is maintained normal. The soft tissues are normal. Right ankle: The ankle mortise and subtalar joints are normal. There is no visible fracture or spurring. No abnormal joint effusion. XR/XR ankle RT min 3V IMPRESSION: Unremarkable right foot and right ankle exam.
--- NOTE | ~2021-11-13 | XR_ITS ---
EXAMINATION: RIGHT FOOT AND RIGHT ANKLE. CLINICAL INFORMATION: Fall. COMPARISON: None TECHNIQUE: 3 views right foot and 2 views right ankle. FINDINGS: Right foot: There is no visible fracture, dislocation or subluxation. The joint space is maintained normal. The soft tissues are normal. Right ankle: The ankle mortise and subtalar joints are normal. There is no visible fracture or spurring. No abnormal joint effusion. XR/XR foot RT min 3V IMPRESSION: Unremarkable right foot and right ankle exam.
[2021-11-13 12:25] VITALS: BP 138/85; PULSE 68; RESP 17; TEMP 36.6; O2SAT 97; BMI 22.2
--- NOTE | 2021-11-13 12:46 | ED.LOWEXIN ---
HPI - Extremity Injury (Lower) General Chief Complaint: Extremity Injury, Lower Stated Complaint: R foot inj Time Seen by Provider: 11/13/21 12:25 Source: patient Mode of arrival: wheelchair Limitations: no limitations History of Present Illness MD complaint: ankle injury, foot injury and fall Onset (ago): day(s) (in the night) Injury: Right: ankle and foot Type of Injury: unknown (unknown foot fell asleep tried to walk on it then fell did not strike head) Place: home Severity: moderate Relieving factors: immobilization Exacerbating factors: weight bearing, movement and palpation Context: fall Associated symptoms: swelling and unable to bear weight Other symptoms: none Related Data Previous Rx's Medication Instructions Recorded levothyroxine 88 mcg capsule 88 mcg PO DAILY #30 cap 06/30/21 ondansetron HCl 4 mg tablet 4 mg PO Q8H PRN #10 tab 09/07/21 (Zofran) naproxen 500 mg tablet (Naprosyn) 500 mg PO BID #20 tab 09/28/21 Allergies Allergy/AdvReac Type Severity Reaction Status Date / Time Sulfa (Sulfonamide Allergy Severe ANAPHYLAXIS Verified 09/07/21 11:50 Antibiotics) [SULFA (SULFONAMIDE ANTIBIOTICS)] cefazolin [CEFAZOLIN] Allergy Intermediate HIVES Verified 09/07/21 11:50 atropine [ATROPINE] Allergy Unknown THROAT Verified 09/07/21 11:50 CLOSES enoxaparin [From LOVENOX] Allergy Unknown UNKNOWN Verified 09/07/21 11:50 Penicillins [PENICILLINS] Allergy Unknown UNKNOWN Verified 09/07/21 11:50 acetaminophen [From VICODIN] AdvReac Unknown NAUSEA & Verified 09/07/21 11:50 VOMITING hydrocodone [From VICODIN] AdvReac Unknown NAUSEA & Verified 09/07/21 11:50 VOMITING Review of Systems Review of Systems: Constitutional : No Fever, No Chills ENT/Mouth : No Ear Pain, No Hoarseness, No sore throat Eyes: No Eye Pain, No Swelling, No Redness, No Foreign Body Cardiovascular : No Chest Pain, No SOB Respiratory : No Cough, No Dyspnea Gastrointestinal : No Nausea, No Vomiting, No Diarrhea, No abdominal Pain Genitourinary : No Dysuria, No Hematuria Musculoskeletal : positive joint pain, No Myalgias, No Joint Swelling Skin : No Skin lacerations, No rash Neuro : No Weakness, No Numbness, No Loss of Consciousness, No Dizziness, No Headache PMFSH Past Medical History Medical History (Updated 11/13/21 @ 13:07 by Tina Campbell DO) Cervical cancer Clot Hypothyroid Surgical History H/O spinal fusion Social History Social History Alcohol intake: never Patient Tobacco Use Status: Current everyday Tobacco user Advance Directives: No Advance Directives Information Provided: No Patient : No Physical Exam Vital Signs: Vital Signs: Last Vital Signs Temp 98 F 11/13/21 12:25 Pulse 68 11/13/21 12:25 Resp 17 11/13/21 12:25 BP 138/85 11/13/21 12:25 Pulse Ox 97 11/13/21 12:25 BMI result Body Mass Index 22.2 Appearance: Alert. Oriented X3. No acute distress. Eyes: Pupils equal, round and reactive to light. ENT: Pharynx normal. Neck: Normal inspection. Neck supple. CVS: Normal heart rate and rhythm. Pulses normal. Respiratory: No respiratory distress. Breath sounds normal. Abdomen: Soft and nontender. Skin: Skin warm and dry. Normal skin color. Normal skin turgor. Extremities: No lower extremity edema. R foot ttp along 5th metatarsal distal NV intact bounding DP and PT pulses foot warm to touch, no proximal ttp lig of knees intact some ttp along lateral malleolus as well Neuro: Oriented X 3. No motor deficit. No sensory deficit. Course Course Course Narrative: no fracture seen on initial exam MDM - Extremity Injury (Lower) MDM Narrative Medical decision making narrative: 46 yo female with isolated R foot and ankle pain after mechanical fall - no head injury GCS 15 no headache to suggest ICH - at this time distal NV intact will need xrays of foot and ankle for fracture dispo per results and findings Procedures Orthopedic Splinting/Casting Injury #1: Side: right Lower Extremity Injury Location: ankle and foot Lower Extremity Immobilizer: post-op shoe Other Orthopedic Equipment: crutches Discharge Plan Discharge Clinical Impression: Ankle sprain and strain Foot sprain Qualifiers: Encounter type: initial encounter Laterality: right Qualified Code(s): S93.601A - Unspecified sprain of right foot, initial encounter Patient Disposition: Home, Self-Care Instructions: Ankle Sprain (ED), Foot Sprain (ED) Additional Instructions: return to ED for any worsening symptoms or concerns FINDINGS: Right foot: There is no visible fracture, dislocation or subluxation. The joint space is maintained normal. The soft tissues are normal. Right ankle: The ankle mortise and subtalar joints are normal. There is no visible fracture or spurring. No abnormal joint effusion.? XR/XR ankle RT min 3V IMPRESSION: Unremarkable right foot and right ankle exam wear shoe for the next 7 days, crutches for the next 5 days, weight bearing as tolerated Prescriptions: No Action levothyroxine 88 mcg capsule 88 mcg PO DAILY Qty: 30 RF: 0 ondansetron HCl [Zofran] 4 mg tablet 4 mg PO Q8H PRN (Reason: nausea and vomiting) Qty: 10 RF: 0 naproxen [Naprosyn] 500 mg tablet 500 mg PO BID Qty: 20 RF: 0 Referrals: Yane Elliott FNP-BC [Nurse Practitioner] - 5 days (if not better) Stand Alone Forms: Work/School Release
[2021-11-13] MEDS: Acetaminophen 325 MG TABLET 650 MG PO (13:39)
[2021-11-13] MEDS: Cyclobenzaprine HCl 10 MG TABLET PO (13:39)
== END 2021-11-13 13:48 | disposition home or self-care (01) ==
PROVIDERS: Emergency Provider Emergency Medicine; PCP Internal Medicine
DX: S93.601A Unspecified sprain of right foot, initial encounter (principal); S96.911A Strain of unspecified muscle and tendon at ankle and foot level, right foot, initial encounter; W17.89XA Other fall from one level to another, initial encounter; F17.200 Nicotine dependence, unspecified, uncomplicated; Y93.89 Activity, other specified; Y92.018 Other place in single-family (private) house as the place of occurrence of the external cause; Y99.9 Unspecified external cause status
CPT/HCPCS: 73610; 73630; 99283